=== PATIENT | male | born 1980 | race Caucasian/White ===

== ENCOUNTER 2019-07-12 17:44 | Emergency (ER) | payer SELFPAY ==
[~2019-07-12] VITALS: Ht 182.9 cm; Wt 90.9 kg
[2019-07-12 17:49] VITALS: BP 135/82
== END 2019-07-12 19:35 | disposition left against medical advice (07) ==
LOC: M ED 17:44
DX: F32.9 Major depressive disorder, single episode, unspecified (principal); R45.851 Suicidal ideations; F17.200 Nicotine dependence, unspecified, uncomplicated; Z81.8 Family history of other mental and behavioral disorders